=== PATIENT | female | born 1995 | race Caucasian/White ===

== ENCOUNTER 2019-08-28 02:16 | Observation (INO) | payer MEDICAID ==
[~2019-08-28] VITALS: Ht 160 cm; Wt 61.2 kg
--- NOTE | 2019-08-28 02:16 | NUR ---
PT TRIAGED AND TAKEN TO L&D
[2019-08-28 02:22] VITALS: BP 131/79
[2019-08-28] MEDS: TERBUTALINE 1 MG/ML VIAL SUBQ SCH ×2 (04:11→04:43)
[2019-08-28 05:16] VITALS: BP 112/73
[2019-08-28] MEDS: TERBUTALINE 2.5 MG TAB PO SCH ×2 (06:03→11:57)
--- NOTE | 2019-08-28 08:33 | NUR ---
PATIENT HAS BEEN SCREENED AND CATEGORIZED LOW NUTRITION RISK. PATIENT WILL BE SEEN WITHIN 7 DAYS OF ADMISSION. 09/03/[address]
[2019-08-28] MEDS ORDERED: FAMOTIDINE 20 MG TAB PO SCH (14:10)
[2019-08-28] MEDS ORDERED: ALUMINUM HYD/MAG/SIMETHICONE 30 ML UDC PO SCH (14:30)
== END 2019-08-28 19:50 | disposition home or self-care (01) ==
LOC: MED 02:16 → MLD 02:16 → EDSTATUS 02:40
PROVIDERS: ADMIT Obstetrics & Gynecology; ATTEND Obstetrics & Gynecology
DX: O62.9 Abnormality of forces of labor, unspecified (principal); O99.512 Diseases of the respiratory system complicating pregnancy, second trimester; J45.909 Unspecified asthma, uncomplicated; Z3A.27 27 weeks gestation of pregnancy
CPT/HCPCS: 76805; 81000; 82948; 96372; G0378; J3105; Q0092

== ENCOUNTER 2019-11-16 07:05 | Inpatient (IN) | payer OTHER ==
[~2019-11-16] VITALS: Ht 149.9 cm; Wt 85.7 kg
[2019-11-16] MEDS ORDERED: NOVR SUBQ (07:43)
[2019-11-16] MEDS ORDERED: PREN-380 PO (07:43)
[2019-11-16] MEDS ORDERED: LACTATED RINGERS 1,000 ML IV SCH (07:43)
[2019-11-16] MEDS ORDERED: AMPICILLIN 2,000 MG VIAL ONE (07:57)
[2019-11-16 08:40] VITALS: BP 110/69
--- NOTE | 2019-11-16 08:46 | NUR ---
PATIENT HAS BEEN SCREENED AND CATEGORIZED LOW NUTRITION RISK. PATIENT WILL BE SEEN WITHIN 7 DAYS OF ADMISSION. 11/22/[address]
[2019-11-16 08:50] LABS: APPEARANCE,URINE HAZY (CLEAR); BILIRUBIN,URINE NEGATIVE (NEGATIVE); BLOOD, URINE NEGATIVE (NEGATIVE); COLOR,URINE YELLOW (YELLOW); LEUKOCYTE ESTERASE ,URINE 1+ (NEGATIVE); NITRITE, URINE NEGATIVE (NEGATIVE); UGLUCOSE NEGATIVE (NEGATIVE)
[2019-11-16 08:58] LABS: BASOPHILS # (AUTO) 0.1 K/uL (0.00-0.22); BASOPHILS % (AUTO) 0.6 % (0.0-2.0); EOSINOPHILS # (AUTO) 0.2 K/uL (0-0.4); EOSINOPHILS % (AUTO) 2.6 % (0.0-4.0); HEMATOCRIT 30.9 % (36-48); LYMPHOCYTES # (AUTO) 2.7 K/uL (2.5-16.5); MEAN CORPUSCULAR HEMOGLOBIN 25 pg (27-31); MEAN CORPUSCULAR HGB CONC 33 g/dL (33-37); MEAN CORPUSCULAR VOLUME 77.5 fL (80-94); MONOCYTES # (AUTO) 0.3 K/uL (0.8-1.0); MONOCYTES % (AUTO) 3.4 % (1.7-9.3); NEUTROPHILS # (AUTO) 5.9 K/uL (1.8-7.7); NEUTROPHILS % (AUTO) 64.4 % (42.2-75.2); PLATELET COUNT (AUTO) 171 K/uL (140-450); RED BLOOD CELL COUNT(AUTO) 3.99 MIL/uL (4.20-5.40); RED CELL DISTRIBUTION WIDTH 14.7 % (11.6-13.7); WHITE BLOOD COUNT (AUTO) 9.1 K/uL (4.8-10.8)
[2019-11-16 09:06] LABS: RBC,URINE 0-5 /HPF (0-5); WBC,URINE 20-60 /HPF (0-5)
[2019-11-16 09:18] LABS: ALBUMIN 2.3 g/dL (3.4-5.0); ANION GAP 13.9 (8-16); CARBON DIOXIDE 25.1 mmol/L (21-32); CREATININE 0.6 mg/dL (0.6-1.3); TOTAL BILIRUBIN 0.2 mg/dL (0.0-1.0)
[2019-11-16] MEDS ORDERED: PROPOFOL 200 MG/20 ML VIAL IV ONE (10:28)
[2019-11-16] MEDS ORDERED: ONDANSETRON 4 MG/2 ML VIAL ONE (10:28)
[2019-11-16] MEDS ORDERED: METOCLOPRAMIDE 10 MG/2 ML INJ VIAL ONE (10:28)
[2019-11-16] MEDS ORDERED: MIDAZOLAM 2 MG/2 ML VIAL ONE ×2 (10:28→11:49)
[2019-11-16] MEDS ORDERED: DEXAMETHASONE 4 MG/ML VIAL ONE (10:28)
[2019-11-16] MEDS ORDERED: MORPHINE PRES FREE 10 MG/10 ML AMP IV ONE (10:34)
[2019-11-16] MEDS ORDERED: OXYTOCIN 20 UNITS in LACTATED RINGERS 1,000 ML IV SCH (11:06)
[2019-11-16] MEDS ORDERED: KETOROLAC 30 MG/ML VIAL IVP PRN (11:10)
[2019-11-16] MEDS ORDERED: NALOXONE 0.4 MG/ML VIAL IVP PRN ×2 (11:10)
[2019-11-16] MEDS ORDERED: diphenhydrAMINE 50 MG/ML VIAL IVP PRN (11:10)
[2019-11-16] MEDS ORDERED: ONDANSETRON 4 MG/2 ML VIAL IVP PRN (11:10)
[2019-11-16] MEDS ORDERED: OXYTOCIN 10 UNITS/ML VIAL ONE (13:52)
[2019-11-16 14:42] LABS: BASOPHILS # (AUTO) 0.1 K/uL (0.00-0.22); BASOPHILS % (AUTO) 0.5 % (0.0-2.0); EOSINOPHILS # (AUTO) 0.1 K/uL (0-0.4); EOSINOPHILS % (AUTO) 0.9 % (0.0-4.0); HEMATOCRIT 27.8 % (36-48); HEMOGLOBIN 9.1 g/dL (12.0-16.0); LYMPHOCYTES % (AUTO) 18.8 % (20.5-51.1); MEAN CORPUSCULAR HEMOGLOBIN 25 pg (27-31); MEAN CORPUSCULAR HGB CONC 33 g/dL (33-37); MEAN CORPUSCULAR VOLUME 77.3 fL (80-94); MONOCYTES # (AUTO) 0.2 K/uL (0.8-1.0); NEUTROPHILS # (AUTO) 8.1 K/uL (1.8-7.7); NEUTROPHILS % (AUTO) 77.8 % (42.2-75.2); PLATELET COUNT (AUTO) 153 K/uL (140-450); RED BLOOD CELL COUNT(AUTO) 3.59 MIL/uL (4.20-5.40); RED CELL DISTRIBUTION WIDTH 14.8 % (11.6-13.7); WHITE BLOOD COUNT (AUTO) 10.5 K/uL (4.8-10.8)
[2019-11-16] MEDS ORDERED: HYDROmorphone 1 MG/ML AMP IVP PRN (14:55)
[2019-11-16] MEDS ORDERED: MEASLES, MUMPS, AND RUBELLA 1 VIAL SQVAC PRN (14:55)
[2019-11-16] MEDS: OXYTOCIN 20 UNITS in LACTATED RINGERS 1,000 ML IV SCH (22:30)
[2019-11-17] MEDS ORDERED: OXYTOCIN 20 UNITS/LR PREMIX 1,000 ML IV ONE (05:47)
[2019-11-17] MEDS: OXYTOCIN 20 UNITS in LACTATED RINGERS 1,000 ML IV SCH (06:28)
[2019-11-17] MEDS ORDERED: AMPICILLIN 2,000 MG in NACL 0.9% 100 ML IV SCH (07:45)
[2019-11-17 08:06] LABS: BASOPHILS % (AUTO) 0.2 % (0.0-2.0); EOSINOPHILS % (AUTO) 0.3 % (0.0-4.0); HEMATOCRIT 26.4 % (36-48); HEMOGLOBIN 8.4 g/dL (12.0-16.0); LYMPHOCYTES # (AUTO) 2.6 K/uL (2.5-16.5); LYMPHOCYTES % (AUTO) 25.5 % (20.5-51.1); MEAN CORPUSCULAR HEMOGLOBIN 25 pg (27-31); MEAN CORPUSCULAR HGB CONC 32 g/dL (33-37); MEAN CORPUSCULAR VOLUME 77.7 fL (80-94); MONOCYTES # (AUTO) 0.5 K/uL (0.8-1.0); MONOCYTES % (AUTO) 4.8 % (1.7-9.3); NEUTROPHILS % (AUTO) 69.2 % (42.2-75.2); PLATELET COUNT (AUTO) 144 K/uL (140-450); RED BLOOD CELL COUNT(AUTO) 3.39 MIL/uL (4.20-5.40); RED CELL DISTRIBUTION WIDTH 14.9 % (11.6-13.7); WHITE BLOOD COUNT (AUTO) 10.2 K/uL (4.8-10.8)
[2019-11-17] MEDS: KETOROLAC 30 MG/ML VIAL IVP PRN ×2 (11:31→18:33)
[2019-11-17] MEDS ORDERED: FUROSEMIDE 20 MG TAB PO ONE (22:55)
[2019-11-18] MEDS: ACETAMINOPHEN 325 MG TAB PO PRN ×3 (03:01→16:34)
[2019-11-18] MEDS ORDERED: SODIUM PHOSPHATE 118 ML ENEM RC PRN (09:00)
[2019-11-18] MEDS: SIMETHICONE 80 MG TAB.CHEW PO SCH ×2 (09:26→17:48)
[2019-11-18] MEDS: DOCUSATE SODIUM 100 MG GELCAP PO SCH (09:27)
[2019-11-18] MEDS: BISACODYL 5 MG TABEC PO SCH (09:27)
[2019-11-18] MEDS: metFORMIN 500 MG TAB PO SCH (17:47)
[2019-11-18] MEDS: IBUPROFEN 600 MG TAB PO PRN (19:05)
[2019-11-19 06:37] LABS: BASOPHILS % (AUTO) 0.5 % (0.0-2.0); EOSINOPHILS # (AUTO) 0.4 K/uL (0-0.4); EOSINOPHILS % (AUTO) 4.3 % (0.0-4.0); HEMATOCRIT 23.6 % (36-48); HEMOGLOBIN 7.5 g/dL (12.0-16.0); LYMPHOCYTES # (AUTO) 2.9 K/uL (2.5-16.5); LYMPHOCYTES % (AUTO) 33.4 % (20.5-51.1); MEAN CORPUSCULAR HEMOGLOBIN 25 pg (27-31); MEAN CORPUSCULAR HGB CONC 32 g/dL (33-37); MEAN CORPUSCULAR VOLUME 78.6 fL (80-94); MONOCYTES # (AUTO) 0.4 K/uL (0.8-1.0); MONOCYTES % (AUTO) 4.6 % (1.7-9.3); NEUTROPHILS % (AUTO) 57.2 % (42.2-75.2); PLATELET COUNT (AUTO) 157 K/uL (140-450); RED CELL DISTRIBUTION WIDTH 15.4 % (11.6-13.7); WHITE BLOOD COUNT (AUTO) 8.7 K/uL (4.8-10.8)
[2019-11-19] MEDS: SIMETHICONE 80 MG TAB.CHEW PO SCH ×3 (08:07→17:59)
[2019-11-19] MEDS: DOCUSATE SODIUM 100 MG GELCAP PO SCH (08:08)
[2019-11-19] MEDS: metFORMIN 500 MG TAB PO SCH ×3 (08:09→17:59)
[2019-11-19] MEDS: IBUPROFEN 600 MG TAB PO PRN ×3 (08:09→23:50)
[2019-11-20] MEDS: SIMETHICONE 80 MG TAB.CHEW PO SCH ×2 (08:48→13:09)
[2019-11-20] MEDS: DOCUSATE SODIUM 100 MG GELCAP PO SCH (08:48)
[2019-11-20] MEDS: IBUPROFEN 600 MG TAB PO PRN (08:48)
[2019-11-20] MEDS: metFORMIN 500 MG TAB PO SCH ×2 (08:48→13:08)
[2019-11-20] MEDS: BISACODYL 5 MG TABEC PO SCH (08:48)
== END 2019-11-20 15:00 | disposition home or self-care (01) | DRG 540 ==
LOC: MLD 07:05 → MFCC 13:34
PROVIDERS: ADMIT Obstetrics & Gynecology; ATTEND Obstetrics & Gynecology
PROC: 10907ZC Drainage of Amniotic Fluid, Therapeutic from Products of Conception, Via Natural or Artificial Opening (ICD-10-PCS; 2019-11-16)
PROC: 3E0234Z Introduction of Serum, Toxoid and Vaccine into Muscle, Percutaneous Approach (ICD-10-PCS; 2019-11-16)
PROC: 10D00Z1 Extraction of Products of Conception, Low, Open Approach (ICD-10-PCS; principal; 2019-11-16 10:30)
DX: O99.824 Streptococcus B carrier state complicating childbirth (principal); O24.92 Unspecified diabetes mellitus in childbirth; O34.211 Maternal care for low transverse scar from previous cesarean delivery; O40.3XX0 Polyhydramnios, third trimester, not applicable or unspecified; Z37.0 Single live birth; Z3A.38 38 weeks gestation of pregnancy; Z23 Encounter for immunization
CPT/HCPCS: 36415; 51702; 76815; 80053; 81001; 82947; 82948; 85025; 86592; 86886; 86900; 86901; 87081; 87086; J0290; J0690; J1100; J1885; J2250; J2270; J2405; J2590; J2704; J2765; J7060; J7120; Q0092

== ENCOUNTER 2020-05-19 21:24 | Emergency (ER) | payer OTHER ==
[~2020-05-19] VITALS: Ht 149.9 cm; Wt 69.9 kg
[~2020-05-19 21:24] MED LIST: NOVR SUBQ; PREN-380 PO
[2020-05-19 21:39] VITALS: BP 128/70
--- NOTE | 2020-05-19 21:45 | NUR ---
ambulated to bed 2 with steady gait.
--- NOTE | 2020-05-19 21:49 | NUR ---
Ambulated to restroom to provide urine.
--- NOTE | 2020-05-19 22:11 | NUR ---
PT STATES SHE IS 11 WEEKS AND STARTED HAVING BROWNISH DISCHARGE WITH SOME TISSUE, BUT DENIES CLOTS. PT NOT SOAKING PADS, DISCHARGE IS MINIMAL. ALSO HAVING LOWER ABD CRAMPING RADIATING INTO HER LEGS. DENIES ANY PROBLEMS WITH URINATION, NO N/V/D. AFEBRILE. G8M P3. BED IN LOWEST POSITION AND SIDERAIL UP X 1. HX ASTHMA NKA
--- NOTE | 2020-05-19 22:11 | NUR ---
URINE COLLECTED, DIP AND PREG TEST DONE
--- NOTE | 2020-05-19 23:12 | NUR ---
LAB AT BEDSIDE
[2020-05-19 23:23] LABS: BASOPHILS # (AUTO) 0.1 K/uL (0.00-0.22); BASOPHILS % (AUTO) 0.5 % (0.0-2.0); EOSINOPHILS # (AUTO) 0.5 K/uL (0-0.4); EOSINOPHILS % (AUTO) 5.2 % (0.0-4.0); HEMATOCRIT 38.2 % (36-48); HEMOGLOBIN 12.4 g/dL (12.0-16.0); LYMPHOCYTES # (AUTO) 3.6 K/uL (2.5-16.5); LYMPHOCYTES % (AUTO) 35.8 % (20.5-51.1); MEAN CORPUSCULAR HEMOGLOBIN 25 pg (27-31); MEAN CORPUSCULAR HGB CONC 32 g/dL (33-37); MEAN CORPUSCULAR VOLUME 76.8 fL (80-94); MONOCYTES # (AUTO) 0.3 K/uL (0.8-1.0); MONOCYTES % (AUTO) 3.2 % (1.7-9.3); NEUTROPHILS # (AUTO) 5.6 K/uL (1.8-7.7); NEUTROPHILS % (AUTO) 55.3 % (42.2-75.2); PLATELET COUNT (AUTO) 214 K/uL (140-450); RED BLOOD CELL COUNT(AUTO) 4.97 MIL/uL (4.20-5.40); RED CELL DISTRIBUTION WIDTH 17.6 % (11.6-13.7); WHITE BLOOD COUNT (AUTO) 10.2 K/uL (4.8-10.8)
[2020-05-19 23:38] LABS: ALBUMIN 3.7 g/dL (3.4-5.0); ANION GAP 11.5 (8-16); CARBON DIOXIDE 25.2 mmol/L (21-32); CREATININE 0.6 mg/dL (0.6-1.3); POTASSIUM 3.7 mmol/L (3.5-5.1); TOTAL BILIRUBIN 0.2 mg/dL (0.0-1.0)
--- NOTE | 2020-05-19 23:59 | NUR ---
ULTRASOUND AT BEDSIDE
[2020-05-20 02:03] VITALS: BP 124/70
--- NOTE | 2020-05-20 02:04 | NUR ---
Patient discharged with v/s stable. Written and verbal after care instructions given and explained. Patient verbalized understanding. Ambulatory with steady gait. All questions addressed prior to discharge. Advised to follow up with PMD.
== END 2020-05-20 02:04 | disposition home or self-care (01) ==
LOC: MED 21:24
DX: O20.8 Other hemorrhage in early pregnancy (principal); J45.909 Unspecified asthma, uncomplicated; Z79.899 Other long term (current) drug therapy
CPT/HCPCS: 36415; 76801; 80053; 81002; 81025; 84702; 85025; 86901; 99284; Q0092

== ENCOUNTER 2020-05-21 18:35 | Emergency (ER) | payer OTHER ==
[~2020-05-21] VITALS: Ht 149.9 cm; Wt 69.9 kg
[2020-05-21 18:41] VITALS: BP 118/75
--- NOTE | 2020-05-21 19:03 | NUR ---
24/F C/O VAGINAL BLEEDING SINCE TUESDAY, PATIENT WAS SEEN HERE IN THE ER AND WAS TOLD SHE HAS AN UTERINE HEMATOMA. PATIENT IS 5 WEEKS . LMP 03/03/20. SHE WAS TOLD TO COME BACK TO THE ER IF BLEEDING CONTINUES. PT STATES SHE SEES LARGE BLOOD CLOTS IN THE TOILET AFTER URINATING AND IS HAVING SPOTTING IN HER UNDER GARMENTS. PATIENT HAS MILD PAIN IN HER BACK. NO N/V, FEVER. VSS. NAD. PMH: PMH, GESTATIONAL DM Addendum: 05/21/20 at 1908 by LEONEL PATIENT REPORTS 5 WEEKS AND LMP 03/03/20
--- NOTE | 2020-05-21 19:17 | NUR ---
LAB AT BEDSIDE.
[2020-05-21 19:28] LABS: BASOPHILS # (AUTO) 0.1 K/uL (0.00-0.22); BASOPHILS % (AUTO) 1.2 % (0.0-2.0); EOSINOPHILS # (AUTO) 0.5 K/uL (0-0.4); EOSINOPHILS % (AUTO) 4.8 % (0.0-4.0); HEMATOCRIT 36.6 % (36-48); HEMOGLOBIN 11.9 g/dL (12.0-16.0); LYMPHOCYTES # (AUTO) 3.3 K/uL (2.5-16.5); LYMPHOCYTES % (AUTO) 32.7 % (20.5-51.1); MEAN CORPUSCULAR HEMOGLOBIN 25 pg (27-31); MEAN CORPUSCULAR HGB CONC 32 g/dL (33-37); MEAN CORPUSCULAR VOLUME 76.8 fL (80-94); MONOCYTES # (AUTO) 0.4 K/uL (0.8-1.0); MONOCYTES % (AUTO) 3.6 % (1.7-9.3); NEUTROPHILS # (AUTO) 5.9 K/uL (1.8-7.7); NEUTROPHILS % (AUTO) 57.7 % (42.2-75.2); PLATELET COUNT (AUTO) 211 K/uL (140-450); RED BLOOD CELL COUNT(AUTO) 4.77 MIL/uL (4.20-5.40); RED CELL DISTRIBUTION WIDTH 17.5 % (11.6-13.7); WHITE BLOOD COUNT (AUTO) 10.2 K/uL (4.8-10.8)
[2020-05-21 19:43] LABS: ALBUMIN 3.6 g/dL (3.4-5.0); ANION GAP 14.8 (8-16); CARBON DIOXIDE 25.9 mmol/L (21-32); CREATININE 0.7 mg/dL (0.6-1.3); POTASSIUM 4.7 mmol/L (3.5-5.1); TOTAL BILIRUBIN 0.1 mg/dL (0.0-1.0)
--- NOTE | 2020-05-21 20:40 | NUR ---
Pelvic exam performed by CLARENCE CHEN with this RN for female associate property manager at bedside for entire examination. Patient tolerated procedure well. Patient assisted to position of comfort after examination.
[2020-05-21 21:17] VITALS: BP 120/77
[2020-05-27 06:07] LABS: CHLAMYDIA TRACHOMATIS AMP DNA Negative (Negative)
== END 2020-05-21 21:17 | disposition home or self-care (01) ==
LOC: MED 18:35
DX: O03.9 Complete or unspecified spontaneous abortion without complication (principal); Z3A.01 Less than 8 weeks gestation of pregnancy; Z79.899 Other long term (current) drug therapy; J45.909 Unspecified asthma, uncomplicated
CPT/HCPCS: 36415; 76801; 80053; 81002; 84702; 85025; 87210; 99284; Q0092

== ENCOUNTER 2022-03-25 20:01 | Emergency (ER) | payer OTHER ==
[~2022-03-25] VITALS: Ht 149.9 cm; Wt 64.0 kg
[2022-03-25 20:16] VITALS: BP 114/68
--- NOTE | 2022-03-25 20:35 | NUR ---
TO LOBBY FOLLOWING TRIAGE. UA OBTAINED
--- NOTE | 2022-03-25 22:17 | NUR ---
PT TAKEN TO US VIA W.C
--- NOTE | 2022-03-25 22:17 | NUR ---
PT TAKEN TO ULTRASOUND
--- NOTE | 2022-03-25 22:41 | NUR ---
PT RETURN FROM ULTRASOUND TO ER LOBBY
[2022-03-25 23:08] LABS: BASOPHILS # (AUTO) 0.1 K/uL (0.00-0.22); BASOPHILS % (AUTO) 0.5 % (0.0-2.0); EOSINOPHILS # (AUTO) 0.3 K/uL (0-0.4); EOSINOPHILS % (AUTO) 3.1 % (0.0-4.0); HEMATOCRIT 40.1 % (36-48); HEMOGLOBIN 13.4 g/dL (12.0-16.0); LYMPHOCYTES # (AUTO) 3.9 K/uL (2.5-16.5); LYMPHOCYTES % (AUTO) 36.4 % (20.5-51.1); MEAN CORPUSCULAR HEMOGLOBIN 27 pg (27-31); MEAN CORPUSCULAR HGB CONC 33 g/dL (33-37); MEAN CORPUSCULAR VOLUME 81.9 fL (80-94); MONOCYTES # (AUTO) 0.4 K/uL (0.8-1.0); NEUTROPHILS # (AUTO) 5.9 K/uL (1.8-7.7); PLATELET COUNT (AUTO) 252 K/uL (140-450); RED CELL DISTRIBUTION WIDTH 14.3 % (11.6-13.7); WHITE BLOOD COUNT (AUTO) 10.6 K/uL (4.8-10.8)
--- NOTE | 2022-03-25 23:36 | NUR ---
PT TO BED #7
[2022-03-25 23:45] LABS: APPEARANCE,URINE SL CLOUDY (CLEAR); BILIRUBIN,URINE NEGATIVE (NEGATIVE); BLOOD, URINE TRACE-I (NEGATIVE); COLOR,URINE YELLOW (YELLOW); LEUKOCYTE ESTERASE ,URINE NEGATIVE (NEGATIVE); NITRITE, URINE NEGATIVE (NEGATIVE); PH,URINE 5.5 (5.0-9.0); UGLUCOSE 3+ (NEGATIVE)
--- NOTE | 2022-03-26 | NUR ---
26 F BIB BOYFRIEND FOR VAGINAL BLEEDING X TODAY. PT STATES 5/10 PAIN. PAIN IS THROBBING, RADIATES FROM BACK TO HIPS TO THIGHS. PT STATESSOME MUCUS WITH BRIGHT RED BLOOD. PT TOOK TYLENOL FOR PAIN. PT DENIES F/V/D/ CHEST PAIN/ COUGH. VSS PT IS AMBULATORY A&0 X4 PMH:ASTHMA RX: ALBUTEROL AND QVAR.
[2022-03-26 00:02] LABS: RBC,URINE 11-20 (MOD) /HPF (0-5)
[2022-03-26 00:03] LABS: WBC,URINE 0-5 /HPF (0-5)
[2022-03-26 01:00] VITALS: BP 126/73
--- NOTE | 2022-03-26 01:00 | NUR ---
Patient discharged with v/s stable. Written and verbal after care instructions given and explained. Patient verbalized understanding. Ambulatory with steady gait. All questions addressed prior to discharge. Advised to follow up with PMD. RAD CD PROVIDED
--- NOTE | 2022-03-26 01:42 | NUR ---
The patient's care was reviewed and supervised by Rekha Andres RN.
== END 2022-03-26 01:00 | disposition home or self-care (01) ==
LOC: MED 20:01
DX: O20.9 Hemorrhage in early pregnancy, unspecified (principal); J45.909 Unspecified asthma, uncomplicated; Z3A.01 Less than 8 weeks gestation of pregnancy
CPT/HCPCS: 36415; 76817; 81001; 84702; 85025; 86900; 86901; 87086; 99284; Q0092